=== PATIENT | female | born 1960 | race Caucasian/White ===

== ENCOUNTER → 2019-11-16 | Outpatient (CLI) | payer BC ==
[~2019-11-16] MED LIST: ALEVE 220MG220 MG PO; COLACE 100100 MG/CAP PO; COUMADIN4 MG PO; COZAAR100 MG PO; FOLIC ACID0.4 MG PO; GRALISE600 MG PO; IRON TABLETS325 MG PO; NORCO 325 MG-7.1 TAB PO; TEGRETOL 2200 MG/TA1; TEGRETOL 2200 MG/TA1 PO; VITAMIN C500 MG PO; ZESTRIL 10MG10 MG PO; ZESTRIL 20MG TA20 MG PO; ZOLOFT 25MG25 MG PO
== END ==
LOC: MC.RAD
DX: Z12.31 Encounter for screening mammogram for malignant neoplasm of breast (principal)

== ENCOUNTER 2020-09-27 14:21 | Outpatient (RCR) | payer OTHER | END 2020-12-26 | disposition home or self-care (01) | LOC: WSOH | DX: S70.01XA Contusion of right hip, initial encounter (principal); I10 Essential (primary) hypertension; G50.0 Trigeminal neuralgia; F32.9 Major depressive disorder, single episode, unspecified; Y99.0 Civilian activity done for income or pay; Z96.641 Presence of right artificial hip joint; Z90.89 Acquired absence of other organs ==

== ENCOUNTER 2021-04-19 16:00 | Outpatient (RCR) | payer BC | END 2021-05-10 | disposition home or self-care (01) | LOC: WSST | DX: R49.0 Dysphonia (principal) ==

== ENCOUNTER 2021-10-16 18:42 | Inpatient (IN) | payer BC ==
[~2021-10-16] VITALS: Ht 175.3 cm; Wt 92.2 kg
[~2021-10-16 18:42] MED LIST changes: +CIPRO 500MG TA500 MG PO; +FLAGYL500 MG PO; -TEGRETOL 2200 MG/TA1; -ZESTRIL 10MG10 MG PO
[2021-10-16 19:58] LABS: BASO % 0.2 % (0.0-2.0); EOS # 0.7 K/mm3 (0.0-0.7); EOS % 3.8 % (0.0-4.0); GRAN # 12.7 K/mm3 (1.4-6.5); GRAN % 68.7 % (42.2-75.2); HEMOGLOBIN 12.4 g/dl (12.5-16.0); LYMPH # 3.7 K/mm3 (1.2-3.4); LYMPH % 19.8 % (20.0-51.0); MEAN CELL VOLUME 88 fl (80.0-100.0); MEAN CORPUSCULAR HEMOGLOBIN 30 pg (27-31); MEAN CORPUSCULAR HGB CONC 35 g/dl (33.0-37.0); MEAN PLATELET VOLUME 9.7 fl (7.4-10.4); MONO # 1.3 K/mm3 (0.1-0.6); PLATELET COUNT 277 K/mm3 (130-400); RED BLOOD COUNT 4.08 M/mm3 (4.10-5.30); REDCELL DISTRIBUTION WIDTH-CV 12.1 % (11.5-14.5)
[2021-10-16 19:59] LABS: HEMATOCRIT 35.9 % (37.0-47.0)
[2021-10-16 20:14] LABS: ALBUMIN 3.3 gm/dL (3.4-4.8); BILIRUBIN,TOTAL 0.3 mg/dL (0.2-1.2); C-REACTIVE PROTEIN 9.16 mg/dL (0.00-0.50); CALCIUM 8.7 mg/dL (8.4-10.2); CREATININE, serum 0.7 mg/dL (0.57-1.11); POTASSIUM 3.9 mmol/L (3.5-4.5); TOTAL PROTEIN 6.8 gm/dL (6.2-8.1)
[2021-10-16 20:50] LABS: COLLECTION METHOD CLEAN CATCH
[2021-10-16 20:56] LABS: PH 6 (5-8); SQUAMOUS EPITHELIAL 0-2 /hpf (0-10); URINE APPEARANCE Clear (CLEAR/HAZY); URINE BACTERIA None Seen /hpf (NONE SEEN); URINE BILIRUBIN Negative (NEGATIVE); URINE BLOOD 1+ (NEGATIVE); URINE COLOR Straw (YELLOW); URINE GLUCOSE Negative (NEGATIVE); URINE KETONE Negative (NEGATIVE); URINE LEUKOCYTE ESTERASE Negative (NEGATIVE); URINE NITRATE Negative (NEGATIVE); URINE PROTEIN(semi-quant) Negative (NEGATIVE); URINE RBC 0-2 /hpf (0-2); URINE UROBILINOGEN Negative (NEGATIVE)
[2021-10-16 22:50] VITALS: BP 137/78; PULSE 90; TEMP 98.5
[2021-10-17] VITALS (7 sets, daily range): BP systolic 107–145; BP diastolic 62–85; PULSE 64–90; TEMP 98–98.8
--- NOTE | 2021-10-17 01:06 | NUR ---
PT ADMIT FROM ER AFTER
--- NOTE | 2021-10-17 04:49 | NUR ---
ADMIT FROM ER PER W/C FOR DIVERTICULTIS. ANTIBOTICS AND IV FLUIDS STARTED. PT RATED PAIN 3-7 WITH INTERMITTENT CRAMPS. NO N/V. DENIES SOA, CHEST PAIN OR DIZZY. ORDER TO CONSULT DR LO AT 0800. TOLERATING CLEAR LIQ. CALL LIGHT WI REACH. POC DISCUSSED.
[2021-10-17 06:30] LABS: BASO % 0.2 % (0.0-2.0); EOS # 0.7 K/mm3 (0.0-0.7); EOS % 4.8 % (0.0-4.0); GRAN # 10.2 K/mm3 (1.4-6.5); GRAN % 67.2 % (42.2-75.2); HEMOGLOBIN 11.1 g/dl (12.5-16.0); MEAN CELL VOLUME 92 fl (80.0-100.0); MEAN CORPUSCULAR HEMOGLOBIN 30 pg (27-31); MEAN CORPUSCULAR HGB CONC 33 g/dl (33.0-37.0); MONO # 1.1 K/mm3 (0.1-0.6); MONO % 7.3 % (1.7-9.3); PLATELET COUNT 254 K/mm3 (130-400); RED BLOOD COUNT 3.65 M/mm3 (4.10-5.30); REDCELL DISTRIBUTION WIDTH-CV 12.3 % (11.5-14.5)
[2021-10-17 06:34] LABS: HEMATOCRIT 33.7 % (37.0-47.0)
[2021-10-17 07:03] LABS: CALCIUM 8.2 mg/dL (8.4-10.2); CREATININE, serum 0.73 mg/dL (0.57-1.11); MAGNESIUM 2.1 mg/dL (1.6-2.6)
[2021-10-17] MEDS ORDERED: NEURONTIN600 MG/TAB PO (09:23)
[2021-10-17] MEDS ORDERED: TEGRETOL 2200 MG/TA1 PO (09:24)
[2021-10-17] MEDS ORDERED: ZOLOFT 100MG100 MG PO (09:26)
[2021-10-17] MEDS ORDERED: LIPITOR 10MG10 MG PO (09:27)
[2021-10-17] MEDS ORDERED: PHARMASSURE L-500 MG PO (09:28)
--- NOTE | 2021-10-17 13:33 | NUR ---
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
--- NOTE | 2021-10-17 16:31 | NUR ---
PT REPORTING SOME NAUSEA/diarrhea AND PAIN IN ABD 5/10. MORPHINE AND ZOFRAN GIVEN
--- NOTE | 2021-10-17 18:37 | NUR ---
PT HAS HAD NO EPISODES OF EMESIS AFTER ZOFRAN. PAIN MANAGED WITH TYLENOL AND MORPHINE, PAIN WORSENS WITH URINATION/STOOL PT STATES "IT BUBBLES AND THEN STARTS TO HURT".
--- NOTE | 2021-10-17 20:15 | NUR ---
Initial shift assessment done- states abd pain 08/27-requesting Morphine at this time- given,, denies nausea, tolerating clear liquids, states had one soft stool around 4 pm today,, Iv fluids of NS at 75cc/hr, has Zosyn infusing at this time also- Up to bathroom on her own- steady on feet
[2021-10-18 04:00] VITALS: BP 155/88; PULSE 72; TEMP 97.9
--- NOTE | 2021-10-18 05:21 | NUR ---
Taking Clear liquids without nausea- Has received Morphine x3 for abd pain 08/27, good relief,, did get Tylenol x1 for headache, no stools during the night-- voiding well
[2021-10-18 06:16] LABS: BASO % 0.3 % (0.0-2.0); EOS # 0.6 K/mm3 (0.0-0.7); EOS % 5.5 % (0.0-4.0); GRAN # 7.4 K/mm3 (1.4-6.5); GRAN % 63.3 % (42.2-75.2); HEMATOCRIT 31.1 % (37.0-47.0); HEMOGLOBIN 10.4 g/dl (12.5-16.0); LYMPH # 2.9 K/mm3 (1.2-3.4); LYMPH % 24.7 % (20.0-51.0); MEAN CELL VOLUME 90 fl (80.0-100.0); MEAN CORPUSCULAR HEMOGLOBIN 30 pg (27-31); MEAN CORPUSCULAR HGB CONC 33 g/dl (33.0-37.0); MEAN PLATELET VOLUME 10.1 fl (7.4-10.4); MONO # 0.7 K/mm3 (0.1-0.6); MONO % 5.9 % (1.7-9.3); PLATELET COUNT 227 K/mm3 (130-400); RED BLOOD COUNT 3.44 M/mm3 (4.10-5.30); REDCELL DISTRIBUTION WIDTH-CV 12.3 % (11.5-14.5)
[2021-10-18 06:48] LABS: ALBUMIN 2.5 gm/dL (3.4-4.8); CALCIUM 7.8 mg/dL (8.4-10.2); CREATININE, serum 0.65 mg/dL (0.57-1.11); PHOSPHOROUS 3.3 mg/dL (2.3-4.7); POTASSIUM 3.8 mmol/L (3.5-4.5)
[2021-10-18 08:22] VITALS: BP 159/86; PULSE 65; TEMP 97.7
--- NOTE | 2021-10-18 08:48 | NUR ---
Patient laying in bed upon entering the room. Requested pain medication, c/o pain in abdomen. Rates pain at a 6/10. Diet advanced from clear liquid to bland as ordered by Dr. Corley. Patient tolerating this well so far. Patient independent in the room. Call light w/in reach and encouraged to call if any needs arise.
--- NOTE | 2021-10-18 11:37 | NUR ---
SW met with the patient to discuss discharge plan. 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 She reports independence with ADLs and does not have any DME. The patient's PCP is Dr. María Lopez and she receives her medications from [facility]. She reports no difficulties obtaining her meds. The patient's DPOA-HC is in EMR and it designates her sister, Sera Mehta (ph#[phone]), and her brother, Jarvis Barcenas. Sera lives in [place]. The patient plans to stay with her sister for the weekend upon discharge. No additional needs at this time. *Discharge plan: home. Will stay with sister for the weekend*
[2021-10-18 11:39] VITALS: BP 119/78; PULSE 68; TEMP 97.9
[2021-10-18 16:04] VITALS: BP 136/80; PULSE 70; TEMP 98
--- NOTE | 2021-10-18 18:46 | NUR ---
Patient has done well today. Tolerated breakfast well, but reported that lunch did not settle well, made her stomach "feel bubbly". Also asked when she should be concerned about lack of BMs. States she had a small one yesterday, but that was it. Patient states she will discuss this with the hospitalist tomorrow.
[2021-10-18 20:58] VITALS: BP 114/75; PULSE 66; TEMP 98.2
[2021-10-19] VITALS: BP 148/78; PULSE 68; TEMP 98
[2021-10-19 04:34] VITALS: BP 149/88; PULSE 67; TEMP 97.8
[2021-10-19 06:38] LABS: BASO % 0.4 % (0.0-2.0); EOS # 0.5 K/mm3 (0.0-0.7); GRAN # 4.1 K/mm3 (1.4-6.5); GRAN % 54.3 % (42.2-75.2); HEMOGLOBIN 10.3 g/dl (12.5-16.0); LYMPH # 2.4 K/mm3 (1.2-3.4); LYMPH % 32.2 % (20.0-51.0); MEAN CELL VOLUME 90 fl (80.0-100.0); MEAN CORPUSCULAR HEMOGLOBIN 30 pg (27-31); MEAN CORPUSCULAR HGB CONC 33 g/dl (33.0-37.0); MEAN PLATELET VOLUME 10.1 fl (7.4-10.4); MONO # 0.4 K/mm3 (0.1-0.6); MONO % 5.8 % (1.7-9.3); PLATELET COUNT 216 K/mm3 (130-400); RED BLOOD COUNT 3.45 M/mm3 (4.10-5.30)
[2021-10-19 07:10] LABS: ALBUMIN 2.5 gm/dL (3.4-4.8); CALCIUM 7.9 mg/dL (8.4-10.2); CREATININE, serum 0.62 mg/dL (0.57-1.11); PHOSPHOROUS 2.9 mg/dL (2.3-4.7); POTASSIUM 3.8 mmol/L (3.5-4.5)
[2021-10-19 07:32] VITALS: BP 169/89; PULSE 66; TEMP 97.7
--- NOTE | 2021-10-19 09:36 | NUR ---
Patient requested pain medication this morning, 2mg of morphine given w/ PRN dose of tylenol. Patient rates pain at 6/10 in the abdomen. Patient reports that she feels well otherwise. Patient is independent in the room. Has call light w/in reach and has been encouraged to call if any needs arise.
[2021-10-19 11:44] VITALS: BP 160/90; PULSE 79; TEMP 97.8
--- NOTE | 2021-10-19 15:38 | NUR ---
Patient given miralax and sennokots as ordered by hospitalist d/t constipation. Patient to notify nurse once BM has occurred.
[2021-10-19 15:54] VITALS: BP 154/94; PULSE 65; TEMP 97.5
[2021-10-19 20:11] VITALS: BP 158/95; PULSE 65; TEMP 98.1
[2021-10-20 00:17] VITALS: BP 157/95; PULSE 65; TEMP 97.5
--- NOTE | 2021-10-20 02:36 | NUR ---
ASSESSMENT COMPLETE FOR THIS SHIFT. PT RESTING IN BED WATCHING TV. PT COMPLAINED OF LEFT LOWER ABD PAIN. PT GIVEN TYLENOL FOR PAIN. PT FELT PAIN MEDICATION WAS EFFECTIVE. PT DENIED PALPITATIONS, SOB, N,V,D OR DIZZINESS. PT EXPRESSED NO OTHER NEEDS AT THIS TIME. CALL LIGHT WITHIN REACH.
[2021-10-20 04:08] VITALS: BP 164/99; PULSE 59; TEMP 98
--- NOTE | 2021-10-20 06:00 | NUR ---
AROUND 0515HRS, PT COMPLAINED OF MORE HEARTBURN, PLUS SOME CHEST TIGHTNESS AND THROAT DISCOMFORT. PT REQUESTED TO TRY DIET PEPSI, TO SEE IF SHE COULD GET A "BIG ENOUGH BURP OUT," TO RELIEVE THE PRESSURE. VSS. PT GIVEN DIET PEPSI AND HER PROTONIX A LITTLE EARLY. PT STATED SHE WAS FEELING BETTER. WILL CONTINUE TO MONITOR AND PASS ON TO DAYSHIFT RN. PT EXPRESSED NO OTHER NEEDS AT THIS TIME. CALL LIGHT WITHIN REACH.
[2021-10-20 06:49] LABS: BASO % 0.5 % (0.0-2.0); EOS # 0.6 K/mm3 (0.0-0.7); EOS % 9.5 % (0.0-4.0); GRAN # 2.8 K/mm3 (1.4-6.5); GRAN % 47.1 % (42.2-75.2); LYMPH # 2.2 K/mm3 (1.2-3.4); LYMPH % 36.3 % (20.0-51.0); MEAN CELL VOLUME 88 fl (80.0-100.0); MEAN CORPUSCULAR HEMOGLOBIN 30 pg (27-31); MEAN CORPUSCULAR HGB CONC 34 g/dl (33.0-37.0); MEAN PLATELET VOLUME 10.6 fl (7.4-10.4); MONO # 0.4 K/mm3 (0.1-0.6); MONO % 6.4 % (1.7-9.3); PLATELET COUNT 248 K/mm3 (130-400); RED BLOOD COUNT 3.99 M/mm3 (4.10-5.30); REDCELL DISTRIBUTION WIDTH-CV 11.7 % (11.5-14.5)
[2021-10-20 07:12] VITALS: BP 184/105; PULSE 61; TEMP 97.8
--- NOTE | 2021-10-20 08:20 | NUR ---
PT LAYING IN BED TEARFUL. PT STATES THAT SHE IS HAVING A LOT OF ANXIETY THIS AM ABOUT GOING HOME. PT STATES THAT SHE IS HAVING SOME CHEST PAIN. I OFFERED PT PRN PAIN MEDS AND PT STATES THAT SHE WOULD LIKE TO HAVE SOME. MORPHINE GIVEN PER ORDER. PT STATES SHE WOULD LIKE TO HAVE SOME MORE WATER. ITEM WAS GOTTEN FOR PT. PT STATES NO OTHER NEEDS AT THIS TIME. PT STATES NO ABD PAIN OR DISCOMFORT AT THIS TIME. PT STATES THAT SHE WAS ABLE TO HAVE A LARGE BM THIS AM. CALL LIGHT IN REACH.
[2021-10-20 08:21] LABS: ALBUMIN 3.1 gm/dL (3.4-4.8); CREATININE, serum 0.69 mg/dL (0.57-1.11); MAGNESIUM 2.1 mg/dL (1.6-2.6); PHOSPHOROUS 3.3 mg/dL (2.3-4.7); POTASSIUM 3.9 mmol/L (3.5-4.5)
[2021-10-20] MEDS ORDERED: AMOXICILLIN 8751 TAB PO (09:40)
[2021-10-20] MEDS ORDERED: TYLENOL 500MG500 MG PO (09:40)
[2021-10-20] MEDS ORDERED: ZOFRAN 4MG T4 MG/TAB PO (09:41)
[2021-10-20] MEDS ORDERED: PROBIOTIC ACID1 EAC3 PO (09:41)
[2021-10-20] MEDS ORDERED: ROXICODONE 55 MG/TAB PO (09:42)
== END 2021-10-20 10:50 | disposition home or self-care (01) | DRG 392 ==
LOC: COL.ER 18:42 → MEDICAL 21:20
PROVIDERS: Family Medicine; Student in an Organized Health Care Education/Training Program; ADMIT Internal Medicine
DX: K57.32 Diverticulitis of large intestine without perforation or abscess without bleeding (principal); I10 Essential (primary) hypertension; F32.A Depression, unspecified; K21.9 Gastro-esophageal reflux disease without esophagitis; J45.909 Unspecified asthma, uncomplicated; G50.0 Trigeminal neuralgia; E66.9 Obesity, unspecified; F17.210 Nicotine dependence, cigarettes, uncomplicated; H91.92 Unspecified hearing loss, left ear; Z96.649 Presence of unspecified artificial hip joint; Z68.32 Body mass index [BMI] 32.0-32.9, adult; Z85.828 Personal history of other malignant neoplasm of skin; Z87.442 Personal history of urinary calculi
CPT/HCPCS: 99223-AI; 99232-AI; 99233-AI; 99239; J1650; J2270; J2405; J2543; J7030; J7120; Q9967

== ENCOUNTER → 2021-11-29 | Outpatient (CLI) | payer BC ==
[~2021-11-29] MED LIST changes: +AMOXICILLIN 8751 TAB PO; +LIPITOR 10MG10 MG PO; +NEURONTIN600 MG/TAB PO; +PHARMASSURE L-500 MG PO; +PROBIOTIC ACID1 EAC3 PO; +ROXICODONE 55 MG/TAB PO; +TYLENOL 500MG500 MG PO; +ZOFRAN 4MG T4 MG/TAB PO; +ZOLOFT 100MG100 MG PO
== END ==
LOC: COL.RAD 14:15
DX: Z13.9 Encounter for screening, unspecified (principal); K57.30 Diverticulosis of large intestine without perforation or abscess without bleeding; Z87.19 Personal history of other diseases of the digestive system
CPT/HCPCS: Q9967

== ENCOUNTER 2023-11-14 14:15 | Outpatient (RCR) | payer BC ==
[~2023-11-14 14:15] MED LIST changes: +HCTZ12.5TAB PO; +LIPITOR 40MG TA40 MG PO; +NORCO 325 MG-51 TAB PO; +PRINIVIL40 MG PO
== END 2023-11-17 ==
LOC: MKS.ESL.PT
DX: M54.41 Lumbago with sciatica, right side (principal)